=== PATIENT | female | born 1965 | race African-American/Black ===

== ENCOUNTER 2022-07-20 03:59 | Day surgery (SDC) | payer OTHER ==
[2022-07-17 09:16] VITALS: BMI 38.8
[2022-07-20] MEDS ORDERED: ACETAMINOPHEN 325 MG TABLET (FP) PO PRN (07:40)
[2022-07-20] MEDS ORDERED: oxyCODONE HCL 5 MG TABLET PO PRN (07:40)
[2022-07-20] MEDS ORDERED: IBUPROFEN 400 MG TABLET (FP) PO PRN (07:40)
[2022-07-20] MEDS ORDERED: ONDANSETRON 4 MG/2 ML VIAL IVPUSH PRN (10:13)
[2022-07-20] MEDS ORDERED: LACTATED RINGERS SOLUTION 1,000 ML IV SCH (10:15)
[2022-07-20] MEDS ORDERED: SUCCINYLCHOLINE CHLORIDE 200 MG/10 ML SYRINGE ONE ×2 (10:21→12:55)
[2022-07-20] MEDS ORDERED: MIDAZOLAM HCL 2 MG/2 ML SINGLE DOSE VIAL ONE (10:21)
[2022-07-20] MEDS ORDERED: PROPOFOL 20 ML ONE ×3 (10:21→12:54)
[2022-07-20] MEDS ORDERED: FENTANYL CITRATE/PF 50 MCG/ML VIAL ONE ×2 (10:21→10:22)
[2022-07-20] MEDS ORDERED: SEVOFLURANE 250 ML BTL ONE (10:21)
[2022-07-20] MEDS ORDERED: GLYCOPYRROLATE 0.2 MG/1 ML VIAL ONE ×2 (11:25)
[2022-07-20] MEDS ORDERED: NEOSTIGMINE METHYLSULFATE 0.5 MG/ML - 10 ML MDV ONE (11:25)
[2022-07-20 13:51] VITALS: RESP 18
[2022-07-20 15:00] VITALS: BP 115/52; PULSE 65; TEMP 97.5
== END 2022-07-20 14:50 | disposition home or self-care (01) ==
LOC: JASU-SURG 03:59
PROVIDERS: ATTEND Obstetrics & Gynecology
PROC: 0UB98ZX Excision of Uterus, Via Natural or Artificial Opening Endoscopic, Diagnostic (ICD-10-PCS; principal; 2022-07-20 10:15)
PROC: 0UDB7ZZ Extraction of Endometrium, Via Natural or Artificial Opening (ICD-10-PCS; 2022-07-20 10:15)
DX: N95.0 Postmenopausal bleeding (principal); N84.0 Polyp of corpus uteri; E11.9 Type 2 diabetes mellitus without complications; Z79.84 Long term (current) use of oral hypoglycemic drugs
CPT/HCPCS: 82962; 88305-TC; 94760